=== PATIENT | female | born 1955 | race Caucasian/White ===

== ENCOUNTER 2021-11-24 09:22 | Inpatient (IN) | payer OTHER ==
[~2021-11-24] VITALS: Ht 154.9 cm; Wt 57.6 kg
[2021-11-24] VITALS (15 sets, daily range): BP systolic 104–163; BP diastolic 71–92
--- NOTE | 2021-11-24 09:27 | PHYS DOC ---
Adult General Chief Complaint Chief Complaint: CHEST PAIN HPI HPI Patient is a 66 year old female activated as a code STEMI by [facility]. Dr. Gera Hernandez was waiting for her down in the emergency department and took her straight to the Pleating Supervisor and she did not stop in an ER room. I did not ask her questions or examine her given she went straight to the Pleating Supervisor. Her EKG did appear to be consistent with a STEMI. Review of Systems Review of Systems Unable to obtain as patient went straight to Pleating Supervisor All other systems were reviewed and found to be within normal limits, except as documented in this note. Physical Exam Physical Exam No exam performed as she went straight to Pleating Supervisor EKG EKG EMS EKG reviewed and appear to be consistent with a STEMI Radiology/Procedures Radiology/Procedures [] Course & Med Decision Making Course & Med Decision Making Patient went straight to the Pleating Supervisor. Dragon Disclaimer Dragon Disclaimer This electronic medical record was generated, in whole or in part, using a voice recognition dictation system. Departure Departure Impression: Primary Impression: STEMI (ST elevation myocardial infarction) Disposition: 09 ADMITTED INPATIENT Admitting Physician: JANN Holden) Condition: GUARDED Referrals: NO PCP (PCP) Problem Qualifiers Primary Impression: STEMI (ST elevation myocardial infarction) Involved coronary artery: unspecified coronary artery Qualified Codes: I21.3 - ST elevation (STEMI) myocardial infarction of unspecified site KORTNEY GUERRIER DO Nov 24, 2021 09:27
[2021-11-24] MEDS ORDERED: BIVALIRUDIN 250 MG VIAL. IVP ONE ×2 (09:34→10:00)
[2021-11-24] MEDS ORDERED: IODIXANOL 320 MG/ML 100 ML VIAL. ONE (09:52)
[2021-11-24] MEDS ORDERED: LIDOCAINE 1% Multi-Dose 20 ML VIAL. ONE (09:53)
[2021-11-24] MEDS ORDERED: CLOPIDOGREL BISULFATE 75 MG TABLET ONE (09:58)
[2021-11-24] MEDS ORDERED: HEPARIN for IV BOLUS 10,000 UNIT/10 ML VIAL. IV ONE (10:00)
[2021-11-24] MEDS ORDERED: NITROGLYCERIN 200 MCG/2 ML SYRINGE FOR CATH/VASC LAB. IART ONE (10:00)
[2021-11-24] MEDS ORDERED: LIDOCAINE 1% Multi-Dose 20 ML VIAL. INJ ONE (10:00)
[2021-11-24] MEDS ORDERED: fentaNYL PF VIAL 100 MCG/2 ML VIAL IV ONE (10:00)
[2021-11-24] MEDS ORDERED: MIDAZOLAM HCL/PF 2 MG/2 ML VIAL. IV ONE (10:00)
[2021-11-24] MEDS ORDERED: CLOPIDOGREL BISULFATE 75 MG TABLET PO ONE (10:00)
--- NOTE | 2021-11-24 10:13 | PDOC ---
MODERATE SEDATION ASSESSMENT RISKS/ALTERNATIVES Risks/Alternatives Risks and alternatives of this type of sedation and procedure discussed with: RISK/ALTERNATIVES: Patient H & P ON CHART H & P H & P on chart and reviewed for co-morbid conditions and appropriate labs. H&P ON CHART: Yes STATUS PREG STATUS ASSESSED: N/A MEDS/ALLERGIES REVIEWED Meds/Allergies Reviewed Medications and Allergies including time and route of recently administered narcotics and sedatives. MEDS/ALLERGIES REVIEWED: Yes ASA RATING ASA RATING: II AIRWAY ASSESSMENT Airway Assessment Airway patency, oral function limitations, presence of caps, crowns, dentures, partials, and ability to extend neck assessed. AIRWAY ASSESSMENT: Yes MALLAMPATI SCORE MALLAMPATI SCORE: II PRE-SEDATION ASSESSMENT PRE-SEDATION ASSESSMENT: Yes HERO CRABTREE MD Nov 24, 2021 10:13
[2021-11-24] MEDS ORDERED: ACETAMINOPHEN 325 MG TABLET. PO PRN (10:15)
[2021-11-24] MEDS: IV 1/2 NORMAL SALINE 1,000 ML IV SCH ×2 (10:15→20:15)
[2021-11-24] MEDS ORDERED: NITROGLYCERIN SUBLINGUAL 0.4 MG BOTTLE OF 25. SL PRN (10:15)
--- NOTE | 2021-11-24 10:22 | PDOC2 ---
CONSULT Date of Consult Date of Consult DATE: 11/24/21 TIME: 10:18 Reason for Consult Reason for Consult: STEMI Identification/Chief Complaint Chief Complaint Chest pain Source Source: Patient History of Present Illness Reason for Visit: 66-year-old female without any previous cardiac history presented via [facility] with retrosternal chest pressure that started 1 hour prior to presentation. She denied any orthopnea/PND, palpitations or syncope. EKG s howed inferior ST elevations prompting code STEMI activation. Patient was given aspirin, heparin and was taken emergently for cardiac catheterization. She was noted to have significant stenosis in the mid and distal segments of right coronary artery and underwent successful PCI/drug-eluting stent placement. Her left ventricle systolic function was normal. Past Medical History Cardiovascular: No pertinent hx Past Surgical History Past Surgical History: No pertinent history Family History Family History No family history of premature coronary artery disease Social History Social History Patient denied any smoking, alcohol or drug use Current Problem List Problem List Problems Medical Problems: (1) STEMI (ST elevation myocardial infarction) Status: Acute Current Medications Current Medications Current Medications Bivalirudin (Angiomax) 250 mg STK-MED ONCE IVP ; Start 11/24/21 at 09:34; Stop 11/24/21 at 09:34; Status DC Iodixanol (Visipaque 320) 100 ml STK-MED ONCE .ROUTE ; Start 11/24/21 at 09:52; Stop 11/24/21 at 09:52; Status DC Heparin Sodium/ Sodium Chloride 500 ml @ As Directed STK-MED ONCE .ROUTE ; Start 11/24/21 at 09:52; Stop 11/24/21 at 09:52; Status DC Lidocaine HCl (Lidocaine 1% 20ml Vial) 20 ml STK-MED ONCE .ROUTE ; Start 11/24/21 at 09:53; Stop 11/24/21 at 09:54; Status DC Nitroglycerin (Nitroglycerin) 200 mcg 1X ONCE IART Last administered on 11/24/21at 10:00; Start 11/24/21 at 10:00; Stop 11/24/21 at 10:01 Heparin Sodium (Porcine) (Heparin Sodium) 4,000 unit 1X ONCE IV Last administered on 11/24/21at 09:22; Start 11/24/21 at 10:00; Stop 11/24/21 at 10:01 Heparin Sodium/ Sodium Chloride (HEPARIN for ARTERIAL LINE FLUSH) 1,000 unit 1X ONCE IART Last administered on 11/24/21at 10:00; Start 11/24/21 at 10:00; Stop 11/24/21 at 10:01 Midazolam HCl (Versed) 1 mg 1X ONCE IV Last administered on 11/24/21at 09:26; Start 11/24/21 at 10:00; Stop 11/24/21 at 10:01 Fentanyl Citrate (Fentanyl 2ml Vial) 50 mcg 1X ONCE IV Last administered on 11/24/21at 09:26; Start 11/24/21 at 10:00; Stop 11/24/21 at 10:01 Bivalirudin (Angiomax) 250 mg 1X ONCE IVP Last administered on 11/24/21at 10:00; Start 11/24/21 at 10:00; Stop 11/24/21 at 10:01 Clopidogrel Bisulfate (Plavix) 600 mg 1X ONCE PO Last administered on 11/24/21at 10:00; Start 11/24/21 at 10:00; Stop 11/24/21 at 10:01 Lidocaine HCl (Lidocaine 1% 20ml Vial) 20 ml 1X ONCE INJ Last administered on 11/24/21at 10:00; Start 11/24/21 at 10:00; Stop 11/24/21 at 10:01; Status UNV Clopidogrel Bisulfate (Plavix) 75 mg STK-MED ONCE .ROUTE ; Start 11/24/21 at 09:58; Stop 11/24/21 at 09:58; Status DC Allergies Allergies: Coded Allergies: No Known Drug Allergies (Unverified , 11/24/21) ROS PSYCHOLOGICAL ROS: No: Hallucinations Eyes: No Loss of vision HEENT: No: Epistaxis Respiratory: No: Hemoptysis Cardiovascular: yes Chest Pain Gastrointestinal: No Vomiting, No Diarrhea Genitourinary: No Hematuria Neurological: No Seizures Physical Exam General: Alert, Oriented X3, mild distress HEENT: Atraumatic Lungs: Clear to auscultation Heart: Regular rate Abdomen: Soft Extremities: No edema Neuro: Normal speech Psych/Mental Status: Mood NL Vitals VITALS Vital Signs Date Time Temp Pulse Resp B/P (MAP) Pulse Ox O2 Delivery O2 Flow Rate FiO2 11/24/21 10:10 77 22 98 Room Air 11/24/21 09:26 2.0 Assessment/Plan Assessment/Plan 1. Acute inferior wall ST elevation myocardial infarction. Cardiac catheterization showed significant stenosis involving mid to distal segments of right coronary artery. She underwent successful PCI/drug-eluting stents placement. Her left ventricle systolic function was within normal limits. Continue aspirin, start Plavix, beta-blockers and statin therapy. Check 2D echo to assess LV systolic function better and rule out any valvular abnormalities. 2. Severe sinus bradycardia per EMS, necessitating administration of atropine. She is presently in sinus tachycardia. We will monitor closely on telemetry. 3. Acute diastolic heart failure secondary to acute MD, as evidenced by elevated LVEDP. Thank you for your consultation HERO CRABTREE MD Nov 24, 2021 10:22
--- NOTE | 2021-11-24 10:33 | CARD ---
MR#: [id number] Date of Study: 11/24/2021 Ordering Physician: HERO GILL, Referring Physician: HERO GILL, Tech: RT Cordell(R) APPROVED REPORT Technologist: RT Cordell(R) Nurse: Unique Sinha RN Procedure(s) performed: 1. Left heart catheterization, selective coronary angiography and left ventr iculography 2. Successful PCI/drug-eluting stent placement to the right coronary artery FL TIME: 10 MIN DOSE: 40 GYCM2 CONTRAST: 159 ML MODERATE SEDATION: 41 MINS INDICATION The indication(s) include : Acute inferior wall ST elevation myocardial infarction. [facility] Clinical Frailty Scale [facility] Clinical Frailty Scale: Mildly Frail Heart Failure Heart Failure: No CASE TECHNIQUE IV conscious sedation was used throughout procedure with appropriate monitoring and was performed in the presence of a registered nurse who was an independent trained observer other than the physician p erforming the procedure. During this case, Fluoroscopy and low osmolar contrast were used for imaging . Specimen(s) Removed: No Estimated Blood loss: 15 cc's. PROCEDURE NARRATIVE After explaining the risk, benefits and alternative options, informed consent was obtained for patien t. Patient was brought to the cardiac Shuttle Buggy Operator and her right groin was prepped and draped in the usu al fashion. 10 cc of 2% lidocaine was infiltrated into the skin and subcutaneous tissues for local a nesthesia. Arterial access was obtained in the right common femoral artery and a 6 Kuwaiti sheath was inserted. 6 Kuwaiti JL4 and 6 Kuwaiti JR4 catheters were used to perform selective angiography of the left and right coronary arteries. 6 Kuwaiti pigtail catheter was used to perform left ventriculograp hy. The following findings were noted: FINDINGS 1. Hemodynamics: Elevated left ventricular end-diastolic pressure of 24 mmHg consistent with acute d iastolic heart failure. No pullback gradient across the aortic valve. 2. Left ventriculography: Normal left ventricle systolic function with ejection fraction estimated a t 65%. No significant mitral regurgitation seen. 3. Coronary angiography: a. The left main coronary artery arose from the left sinus of Valsalva, gave rise to the left anteri or descending and left circumflex arteries and did not show any significant stenosis. b. The left anterior descending artery did not show any significant stenosis. c. The left circumflex artery did not show any significant stenosis. d. The right coronary artery arose from the right sinus of Valsalva and showed 70% stenosis in the m idsegment and 100% occlusion in the mid to distal segment. Patient was also noted to have 90% stenos is in the distal segment after opening up to 100% occlusion with the balloon. INTERVENTION The right coronary artery was engaged with a 6 Kuwaiti JR4 guide catheter and the complete occlusion i n the mid to distal segment was crossed with a 0.014 inch Ameriprime guidewire. Multiple inflati ons were performed within the mid, mid to distal and distal segments using 2.5 x 12 mm TapZen fic Emerge balloon. The distal segment stenosis was treated with a 2.5 x 15 mm resolute Luca drug-el uting stent. The mid and mid to distal segment stenoses were treated with a 3.0 x 34 mm resolute Luba x drug-eluting stent. Follow-up angiography showed resolution of the lesions to 0% with BISI-3 dista l flow. Patient tolerated the procedure well. Hemostasis was achieved using Angio-Seal. There were no immediate complications. BISI Flow BISI Flow (Pre-Intervention): BISI-0 BISI Flow (Post-Intervention): BISI-3 Conclusion 1. Severe single-vessel coronary disease involving the right coronary artery as described above 2. Successful PCI/drug-eluting stent placement to RCA 3. Normal left ventricle systolic function with ejection fraction estimated at 65% Recommendations 1. Aspirin 325 mg daily for 1 month followed by 81 mg daily 2. Plavix 75 mg daily 3. Cardiovascular risk factor modification Signed by : Hero Gill, Electronically Approved : 11/24/2021 10:32:53
--- NOTE | 2021-11-24 13:03 | SSS ---
DATE OF SERVICE: 11/24/2021 ADMIT DATE: 11/24/2021 CHIEF COMPLAINT: Chest pressure. HISTORY OF PRESENT ILLNESS: The patient is a pleasant 66-year-old female who presented to [facility] ER via EMS. She was having chest pain. They noted that she had a lot of EKG changes with ST elevations, which prompted a STEMI activation. She was transferred here. Dr. Gill took her to the labor standards director and successfully placed 2 stents to the RCA. She is now being examined in the ICU where she is stable. PAST MEDICAL HISTORY: Benign. ALLERGIES: None. FAMILY HISTORY: Diabetes. SOCIAL HISTORY: She does not drink, smoke or take drugs. She is . MEDICATIONS: Reviewed. Please refer to the MRAD. REVIEW OF SYSTEMS: GENERAL: No history of weight change, weakness or fevers. SKIN: No bruising, hair changes or rashes. EYES: No blurred, double or loss of vision. NOSE AND THROAT: No history of nosebleeds, hoarseness or sore throat. HEART: No history of palpitations, chest pain or shortness of breath on exertion. LUNGS: Denies cough, hemoptysis, wheezing or shortness of breath. GASTROINTESTINAL: Denies changes in appetite, nausea, vomiting, diarrhea or constipation. GENITOURINARY: No history of frequency, urgency, hesitancy or nocturia. NEUROLOGIC: Denies history of numbness, tingling, tremor or weakness. PSYCHIATRIC: No history of panic, anxiety or depression. ENDOCRINE: No history of heat or cold intolerance, polyuria or polydipsia. EXTREMITIES: Denies muscle weakness, joint pain, pain on walking or stiffness. PHYSICAL EXAMINATION: VITALS: Within normal limits and are stable. GENERAL: No apparent distress. Alert and oriented. HEENT: Normal cephalic atraumatic, external auditory canals are patent. EYES: Extraocular muscles are intact, pupils are equally round and reactive to light and accommodation. MUSCULOSKELETAL: Well developed, well nourished, good range of motion. ENDOCRINE: No thyromegaly was palpated. LYMPHATICS: No cervical chain or axillary nodes were noted. HEMATOPOIETIC: No bruising. NECK: Supple, no JVD, no thyromegaly was noted. LUNGS: Clear to auscultation in all lung alvares without rhonchi or wheezing. HEART: RRR, S1, S2 present. Peripheral pulses intact, no obvious murmurs were noted. ABDOMEN: Soft, nontender. Positive bowel sounds no organomegaly, normal bowel sounds. EXTREMITIES: Without any cyanosis, clubbing, or edema. Pedal pulses intact, Homans sign is negative. NEUROLOGIC: Normal speech, normal tone. A and O x 3, moves all extremities, no obvious focal deficits. PSYCHIATRIC: Normal affect, normal mood. Stable. SKIN: No ulcerations or rashes, good skin turgor, no jaundice. VASCULAR: Good capillary refill, neurovascular bundle appears to be intact. ASSESSMENT AND PLAN: Resolving acute myocardial infarction with successful cardiac catheterization and 2 new stent to the right coronary artery. For now, we are just watching her in the ICU. We hope to discharge tomorrow. We have ordered Plavix 75 a day, aspirin 325 a day, atorvastatin 40 a day, metoprolol 12.5 b.i.d., p.r.n. nitro, p.r.n. Tylenol and normal saline. MICHAEL/LOUIE DR: Randolph TID: [id number]
[2021-11-24 13:44] LABS: BASO % 0 % (0-3); EOS % 0 % (0-3); HEMATOCRIT 45.2 % (36.0-47.0); HEMOGLOBIN 15.1 g/dL (12.0-15.5); LYMPH # 0.9 x10^3/uL (1.0-4.8); LYMPH % 7 % (24-48); MEAN CORPUSCULAR HEMOGLOBIN 30 pg (25-35); MEAN CORPUSCULAR HGB CONC 33 g/dL (31-37); MEAN CORPUSCULAR VOLUME 90 fL (79-100); MONO # 0.4 x10^3/uL (0.0-1.1); MONO % 3 % (0-9); NEUT # 12.3 x10^3/uL (1.8-7.7); NEUT % 90 % (31-73); PLATELET COUNT 253 x10^3/uL (140-400); RED BLOOD COUNT 5.03 x10^6/uL (3.50-5.40); RED CELL DISTRIBUTION WIDTH 13.1 % (11.5-14.5); WHITE BLOOD COUNT 13.7 x10^3/uL (4.0-11.0)
[2021-11-24 13:54] LABS: CREATININE 0.9 mg/dL (0.6-1.0); POTASSIUM 4.2 mmol/L (3.5-5.1)
[2021-11-24 13:57] LABS: ALBUMIN 4.1 g/dL (3.4-5.0); ALBUMIN/GLOBULIN RATIO 1.2 (1.0-1.7); TOTAL BILIRUBIN 1.2 mg/dL (0.2-1.0); TOTAL PROTEIN 7.4 g/dL (6.4-8.2)
[2021-11-24 13:59] LABS: PROTHROMBIN TIME PATIENT 16.9 SEC (11.7-14.0)
--- NOTE | 2021-11-24 14:56 | RAD ---
XR CHEST 1V INDICATION: CHEST PAIN . COMPARISON STUDY: None. FINDINGS: Lungs: Normal lung volume. No pulmonary mass or consolidation. The tracheobronchial tree and hilar st ructures are normal. Pleura: No pleural effusion or pneumothorax. Heart and Mediastinum: The cardiomediastinal silhouette is normal. The great vessels of the thorax ar e normal. Bones and Soft Tissues: The bones and soft tissues are within normal limits. IMPRESSION: No acute cardiopulmonary process. Electronically signed by: Kermit Akbar MD (11/24/2021 2:53 PM) [facility]
--- NOTE | 2021-11-24 18:25 | CARD ---
MR#: [id number] Date of Study: 11/24/2021 Ordering Physician: HERO GILL, Referring Physician: Alex MARTÍNEZ: Brice Jackson [facility] APPROVED REPORT EXAM: Two-dimensional and M-mode echocardiogram with Doppler and color Doppler. Other Information Quality : AverageHR: 69bpm Rhythm : NSR INDICATION Cardiac Disease: CAD STEMI RISK FACTORS No previous risk factors. 2D DIMENSIONS Left Atrium(2D)2.8 (1.6-4.0cm)IVSd0.8 (0.7-1.1cm) Aortic Root(2D)2.5 (2.0-3.7cm)LVDd4.6 (3.9-5.9cm) LVOT Diameter1.7 (1.8-2.4cm)PWd0.8 (0.7-1.1cm) LVDs2.8 (2.5-4.0cm)FS (%) 39.4 % SV67.2 mlLVEF(%)70.0 (>50%) Mitral Valve MV E Theozjxa56.6cm/sMV DECEL [id number] MV A Ibqpqord80.9cm/sE/A Ratio0.9 Tricuspid Valve TR P. Cikzxwel924yq/sTR Peak Gr.15mmHg Pulmonary Vein S1 Oxdznosy73.4cm/sD2 Gxkxojwc87.0cm/s LEFT VENTRICLE The left ventricle is normal size. There is normal left ventricular wall thickness. The left ventricu lar systolic function is normal. The ejection fraction is estimated at 60%. There is normal LV segmen luci wall motion. Transmitral Doppler flow pattern is Grade I-abnormal relaxation pattern. No left adam tricle thrombus noted on this study. There is no ventricular septal defect visualized. There is no le ft ventricular aneurysm. There is no mass noted in the left ventricle. RIGHT VENTRICLE The right ventricle is normal size. There is normal right ventricular wall thickness. The right ventr icular systolic function is normal. ATRIA The left atrium size is normal. The right atrium size is normal. The interatrial septum is intact wit h no evidence for an atrial septal defect or patent foramen ovale as noted on 2-D or Doppler imaging. AORTIC VALVE The aortic valve is normal in structure and function. Doppler and Color Flow revealed no significant aortic regurgitation. There is no significant aortic valvular stenosis. There is no aortic valvular v egetation. MITRAL VALVE The mitral valve is normal in structure and function. There is no evidence of mitral valve prolapse. There is no mitral valve stenosis. Doppler and Color-flow revealed trace mitral regurgitation. TRICUSPID VALVE The tricuspid valve is normal in structure and function. Doppler and Color Flow revealed trace tricus pid regurgitation. There is no tricuspid valve prolapse or vegetation. There is no tricuspid valve st enosis. PULMONIC VALVE The pulmonary valve is normal in structure and function. Doppler and Color Flow revealed no pulmonic valvular regurgitation. There is no pulmonic valvular stenosis. GREAT VESSELS The aortic root is normal in size. The ascending aorta is normal in size. The pulmonary artery is nor mal. The IVC is normal in size and collapses >50% with inspiration. PERICARDIAL EFFUSION There is no pleural effusion. There is no evidence of significant pericardial effusion. Critical Notification Critical Value: No <Conclusion> The left ventricular systolic function is normal. The ejection fraction is estimated at 60%. There is normal LV segmental wall motion. Transmitral Doppler flow pattern is Grade I-abnormal relaxation pattern. Trace mitral regurgitation. Trace tricuspid regurgitation. There is no evidence of significant pericardial effusion. Signed by : Hero Gill, Electronically Approved : 11/24/2021 18:25:14
[2021-11-24] MEDS ORDERED: PROG200C10 PO (19:44)
[2021-11-24] MEDS: METOPROLOL TART IMMED RELEASE 25 MG TABLET. PO SCH (21:00)
[2021-11-24] MEDS ORDERED: ATORVASTATIN CALCIUM 20 MG TABLET PO SCH (21:00)
[2021-11-25] VITALS (12 sets, daily range): BP systolic 125–199; BP diastolic 64–91
[2021-11-25] MEDS ORDERED: ZOLPIDEM 5 MG TABLET. PO PRN
[2021-11-25 04:19] LABS: BASO % 0 % (0-3); EOS # 0.1 x10^3/uL (0.0-0.7); EOS % 1 % (0-3); HEMATOCRIT 44.9 % (36.0-47.0); HEMOGLOBIN 14.9 g/dL (12.0-15.5); LYMPH # 1.9 x10^3/uL (1.0-4.8); LYMPH % 19 % (24-48); MEAN CORPUSCULAR HEMOGLOBIN 29 pg (25-35); MEAN CORPUSCULAR HGB CONC 33 g/dL (31-37); MEAN CORPUSCULAR VOLUME 89 fL (79-100); MONO # 0.8 x10^3/uL (0.0-1.1); MONO % 8 % (0-9); NEUT # 7.2 x10^3/uL (1.8-7.7); NEUT % 72 % (31-73); PLATELET COUNT 234 x10^3/uL (140-400); RED BLOOD COUNT 5.07 x10^6/uL (3.50-5.40)
[2021-11-25 04:33] LABS: ALBUMIN 3.6 g/dL (3.4-5.0); ALBUMIN/GLOBULIN RATIO 1.1 (1.0-1.7); CALCIUM 8.9 mg/dL (8.5-10.1); CREATININE 0.8 mg/dL (0.6-1.0); GFR 72.2; POTASSIUM 3.7 mmol/L (3.5-5.1); TOTAL BILIRUBIN 1.5 mg/dL (0.2-1.0)
[2021-11-25] MEDS: IV 1/2 NORMAL SALINE 1,000 ML IV SCH (06:15)
--- NOTE | 2021-11-25 07:15 | PDOC ---
PROGRESS NOTES Date of Service: DATE: 11/25/21 TIME: 07:15 Subjective Subjective Patient feeling much better today. Denied any chest pain. Objective Objective Vital Signs Date Time Temp Pulse Resp B/P (MAP) Pulse Ox O2 Delivery O2 Flow Rate FiO2 11/25/21 06:00 63 17 169/82 (111) 99 Room Air 11/25/21 04:00 97.8 97.8 11/24/21 09:26 2.0 Intake and Output 11/25/21 07:00 Intake Total 2200 ml Output Total 0 ml Balance 2200 ml Intake Oral 2200 ml Output Urine Total 0 ml # Voids 9 Physical Exam Abdomen: Soft Heart: Regular rate Extremities: No edema General: Alert, Oriented X3, No acute distress HEENT: Atraumatic Lungs: Clear to auscultation Neuro: Normal speech Psych/Mental Status: Mood NL Assessment Assessment 1. Acute inferior wall ST elevation myocardial infarction. Cardiac catheterization yesterday showed significant stenosis involving mid to distal segments of right coronary artery. She underwent successful PCI/drug-eluting stents placement. 2D echo showed normal LV systolic function. Continue aspirin, start Plavix, beta-blockers and statin therapy. 2. Severe sinus bradycardia per EMS, necessitating administration of atropine. Telemetry did not show any further episodes. 3. Acute diastolic heart failure secondary to acute MT, as evidenced by elevated LVEDP. She is clinically well compensated. Okay for DC from cardiac standpoint. We will refer patient for cardiac rehabilitation follow-up in 1 month. Plan Plan of Care Problems Medical Problems: (1) STEMI (ST elevation myocardial infarction) Status: Acute Comment Review of Relevant I have reviewed the following items clive (where applicable) has been applied. Labs Laboratory Tests Test 11/24/21 13:25 11/25/21 04:00 White Blood Count 13.7 x10^3/uL (4.0-11.0) 10.0 x10^3/uL (4.0-11.0) Red Blood Count 5.03 x10^6/uL (3.50-5.40) 5.07 x10^6/uL (3.50-5.40) Hemoglobin 15.1 g/dL (12.0-15.5) 14.9 g/dL (12.0-15.5) Hematocrit 45.2 % (36.0-47.0) 44.9 % (36.0-47.0) Mean Corpuscular Volume 90 fL (79-100) 89 fL (79-100) Mean Corpuscular Hemoglobin 30 pg (25-35) 29 pg (25-35) Mean Corpuscular Hemoglobin Concent 33 g/dL (31-37) 33 g/dL (31-37) Red Cell Distribution Width 13.1 % (11.5-14.5) 13.0 % (11.5-14.5) Platelet Count 253 x10^3/uL (140-400) 234 x10^3/uL (140-400) Neutrophils (%) (Auto) 90 % (31-73) 72 % (31-73) Lymphocytes (%) (Auto) 7 % (24-48) 19 % (24-48) Monocytes (%) (Auto) 3 % (0-9) 8 % (0-9) Eosinophils (%) (Auto) 0 % (0-3) 1 % (0-3) Basophils (%) (Auto) 0 % (0-3) 0 % (0-3) Neutrophils # (Auto) 12.3 x10^3/uL (1.8-7.7) 7.2 x10^3/uL (1.8-7.7) Lymphocytes # (Auto) 0.9 x10^3/uL (1.0-4.8) 1.9 x10^3/uL (1.0-4.8) Monocytes # (Auto) 0.4 x10^3/uL (0.0-1.1) 0.8 x10^3/uL (0.0-1.1) Eosinophils # (Auto) 0.0 x10^3/uL (0.0-0.7) 0.1 x10^3/uL (0.0-0.7) Basophils # (Auto) 0.0 x10^3/uL (0.0-0.2) 0.0 x10^3/uL (0.0-0.2) Prothrombin Time 16.9 SEC (11.7-14.0) Prothromb Time International Ratio 1.4 (0.8-1.1) Activated Partial Thromboplast Time 69 SEC (24-38) Sodium Level 136 mmol/L (136-145) 137 mmol/L (136-145) Potassium Level 4.2 mmol/L (3.5-5.1) 3.7 mmol/L (3.5-5.1) Chloride Level 101 mmol/L (98-107) 104 mmol/L (98-107) Carbon Dioxide Level 24 mmol/L (21-32) 25 mmol/L (21-32) Anion Gap 11 (6-14) 8 (6-14) Blood Urea Nitrogen 15 mg/dL (7-20) 11 mg/dL (7-20) Creatinine 0.9 mg/dL (0.6-1.0) 0.8 mg/dL (0.6-1.0) Estimated GFR (Cockcroft-Gault) 63.0 72.2 BUN/Creatinine Ratio 17 (6-20) 14 (6-20) Glucose Level 87 mg/dL (70-99) 107 mg/dL (70-99) Calcium Level 9.0 mg/dL (8.5-10.1) 8.9 mg/dL (8.5-10.1) Total Bilirubin 1.2 mg/dL (0.2-1.0) 1.5 mg/dL (0.2-1.0) Aspartate Amino Transf (AST/SGOT) 77 U/L (15-37) 92 U/L (15-37) Alanine Aminotransferase (ALT/SGPT) 30 U/L (14-59) 27 U/L (14-59) Alkaline Phosphatase 79 U/L (46-116) 74 U/L (46-116) Troponin I High Sensitivity 79563 ng/L (4-50) RY-Cbd-I-Type Natriuretic Peptide 114 pg/mL (0-124) Total Protein 7.4 g/dL (6.4-8.2) 7.0 g/dL (6.4-8.2) Albumin 4.1 g/dL (3.4-5.0) 3.6 g/dL (3.4-5.0) Albumin/Globulin Ratio 1.2 (1.0-1.7) 1.1 (1.0-1.7) Medications Current Medications Acetaminophen (Tylenol) 650 mg PRN Q6HRS PRN PO MILD PAIN / TEMP > 100.3'F; Start 11/24/21 at 10:15 Aspirin (Ecotrin) 325 mg DAILYWBKFT PO ; Start 11/25/21 at 08:00 Atorvastatin Calcium (Lipitor) 40 mg QHS PO Last administered on 11/24/21at 21:00; Start 11/24/21 at 21:00 Bivalirudin (Angiomax) 250 mg 1X ONCE IVP Last administered on 11/24/21at 10:00; Start 11/24/21 at 10:00; Stop 11/24/21 at 10:13; Status DC Bivalirudin (Angiomax) 250 mg STK-MED ONCE IVP ; Start 11/24/21 at 09:34; Stop at 09:34; Status DC Clopidogrel Bisulfate (Plavix) 75 mg DAILYWBKFT PO ; Start 11/25/21 at 08:00 Clopidogrel Bisulfate (Plavix) 75 mg STK-MED ONCE .ROUTE ; Start 11/24/21 at 09:58; Stop 11/24/21 at 09:58; Status DC Clopidogrel Bisulfate (Plavix) 600 mg 1X ONCE PO Last administered on 11/24/21at 10:00; Start 11/24/21 at 10:00; Stop 11/24/21 at 10:13; Status DC Fentanyl Citrate (Fentanyl 2ml Vial) 50 mcg 1X ONCE IV Last administered on 11/24/21at 09:26; Start 11/24/21 at 10:00; Stop 11/24/21 at 10:13; Status DC Heparin Sodium (Porcine) (Heparin Sodium) 4,000 unit 1X ONCE IV Last administered on 11/24/21at 09:22; Start 11/24/21 at 10:00; Stop 11/24/21 at 10:13; Status DC Heparin Sodium/ Sodium Chloride 500 ml @ As Directed STK-MED ONCE .ROUTE ; Start 11/24/21 at 09:52; Stop 11/24/21 at 09:52; Status DC Heparin Sodium/ Sodium Chloride (HEPARIN for ARTERIAL LINE FLUSH) 1,000 unit 1X ONCE IART Last administered on 11/24/21at 10:00; Start 11/24/21 at 10:00; Stop 11/24/21 at 10:13; Status DC Iodixanol (Visipaque 320) 100 ml STK-MED ONCE .ROUTE ; Start 11/24/21 at 09:52; Stop 11/24/21 at 09:52; Status DC Lidocaine HCl (Lidocaine 1% 20ml Vial) 20 ml 1X ONCE INJ Last administered on 11/24/21at 10:00; Start 11/24/21 at 10:00; Stop 11/24/21 at 10:13; Status DC Lidocaine HCl (Lidocaine 1% 20ml Vial) 20 ml STK-MED ONCE .ROUTE ; Start 11/24/21 at 09:53; Stop 11/24/21 at 09:54; Status DC Metoprolol Tartrate (Lopressor) 12.5 mg BID PO Last administered on 11/24/21at 21:00; Start 11/24/21 at 21:00 Midazolam HCl (Versed) 1 mg 1X ONCE IV Last administered on 11/24/21at 09:26; Start 11/24/21 at 10:00; Stop 11/24/21 at 10:13; Status DC Nitroglycerin (Nitroglycerin) 200 mcg 1X ONCE IART Last administered on 11/24/21at 10:00; Start 11/24/21 at 10:00; Stop 11/24/21 at 10:13; Status DC Nitroglycerin (Nitrostat) 0.4 mg PRN Q5MIN PRN SL CHEST PAIN; Start 11/24/21 at 10:15 Sodium Chloride 1,000 ml @ 100 mls/hr Q10H IV ; Start 11/24/21 at 10:15 Zolpidem Tartrate (Ambien) 5 mg PRN QHS PRN PO INSOMNIA Last administered on 11/25/21at 00:08; Start 11/25/21 at 00:00 Vitals/I & O Vital Sign - Last 24 Hours 11/24/21 11/24/21 11/24/21 11/24/21 09:26 10:00 10:10 10:30 Temp 98.2 98.2 Pulse 77 88 Resp 22 14 B/P (MAP) 137/85 (102) Pulse Ox 98 98 98 99 O2 Delivery Nasal Cannula Room Air Room Air Room Air O2 Flow Rate 2.0 11/24/21 11/24/21 11/24/21 11/24/21 10:45 12:00 13:00 14:00 Temp 98.5 98.5 Pulse 86 68 80 74 Resp 16 16 16 16 B/P (MAP) 104/84 (91) 163/74 (103) 155/73 (100) 141/71 (94) Pulse Ox 100 100 100 99 O2 Delivery Room Air Room Air Room Air Room Air 11/24/21 11/24/21 11/24/21 11/24/21 15:00 16:00 17:00 18:00 Temp 98.4 98.4 Pulse 72 78 84 63 Resp 16 18 18 20 B/P (MAP) 152/85 (107) 133/72 (92) 152/92 (112) 156/81 (106) Pulse Ox 99 100 99 97 O2 Delivery Room Air Room Air Room Air Room Air 11/24/21 11/24/21 11/24/21 11/24/21 19:00 19:58 20:00 21:00 Temp 98.1 98.1 Pulse 74 63 65 Resp 16 18 B/P (MAP) 148/75 (99) 163/84 (110) 165/70 Pulse Ox 97 99 O2 Delivery Room Air Room Air Room Air 11/24/21 11/24/21 11/24/21 11/25/21 21:00 22:00 23:00 00:00 Pulse 61 60 51 Resp 15 14 14 B/P (MAP) 162/90 (114) 156/78 (104) 148/85 (106) Pulse Ox 100 98 99 O2 Delivery Room Air Room Air Room Air Room Air 11/25/21 11/25/21 11/25/21 11/25/21 00:00 01:00 02:00 03:00 Temp 98.0 98.0 Pulse 93 56 61 58 Resp 18 12 16 14 B/P (MAP) 147/67 (93) 125/85 (98) 144/64 (90) 199/83 (121) Pulse Ox 99 98 98 99 O2 Delivery Room Air Room Air Room Air Room Air 11/25/21 11/25/21 11/25/21 11/25/21 04:00 04:05 05:00 06:00 Temp 97.8 97.8 Pulse 57 60 63 Resp 18 16 17 B/P (MAP) 138/89 (105) 174/64 (100) 169/82 (111) Pulse Ox 99 99 99 O2 Delivery Room Air Room Air Room Air Room Air Intake and Output 11/24/21 11/24/21 11/25/21 15:00 23:00 07:00 Intake Total 600 ml 350 ml 1250 ml Output Total 0 ml Balance 600 ml 350 ml 1250 ml HERO CRABTREE MD Nov 25, 2021 07:15
[2021-11-25] MEDS ORDERED: CLOPIDOGREL BISULFATE 75 MG TABLET PO SCH (08:00)
[2021-11-25] MEDS ORDERED: ASPIRIN ENTERIC COATED 325 MG TABLET.DR. PO SCH (08:00)
[2021-11-25] MEDS: METOPROLOL TART IMMED RELEASE 25 MG TABLET. PO SCH (10:08)
--- NOTE | 2021-11-25 11:50 | PDOC ---
[facility] PROGRESS NOTE Date of Service DOS: DATE: 11/25/21 TIME: 11:49 Chief Complaint Chief Complaint Resolving acute myocardial infarction with successful cardiac catheterization and 2 new stent to the right coronary artery. History of Present Illness History of Present Illness 11/26/2019 Patient seen and examined Discussed with RN Chart reviewed Patient looks great wants to go Vitals/I&O Vitals/I&O: Vital Signs Date Time Temp Pulse Resp B/P (MAP) Pulse Ox O2 Delivery O2 Flow Rate FiO2 11/25/21 10:08 76 148/91 11/25/21 07:00 18 100 Room Air 11/25/21 04:00 97.8 97.8 11/24/21 09:26 2.0 I & O 11/24/21 11/24/21 11/25/21 15:00 23:00 07:00 Intake Total 600 ml 350 ml 1250 ml Output Total 0 ml Balance 600 ml 350 ml 1250 ml Physical Exam General: Alert, Oriented X3, mild distress Heart: Regular rate Abdomen: Soft Extremities: No edema Labs Labs: Laboratory Tests Test 11/24/21 13:25 11/25/21 04:00 White Blood Count 13.7 x10^3/uL (4.0-11.0) 10.0 x10^3/uL (4.0-11.0) Red Blood Count 5.03 x10^6/uL (3.50-5.40) 5.07 x10^6/uL (3.50-5.40) Hemoglobin 15.1 g/dL (12.0-15.5) 14.9 g/dL (12.0-15.5) Hematocrit 45.2 % (36.0-47.0) 44.9 % (36.0-47.0) Mean Corpuscular Volume 90 fL (79-100) 89 fL (79-100) Mean Corpuscular Hemoglobin 30 pg (25-35) 29 pg (25-35) Mean Corpuscular Hemoglobin Concent 33 g/dL (31-37) 33 g/dL (31-37) Red Cell Distribution Width 13.1 % (11.5-14.5) 13.0 % (11.5-14.5) Platelet Count 253 x10^3/uL (140-400) 234 x10^3/uL (140-400) Neutrophils (%) (Auto) 90 % (31-73) 72 % (31-73) Lymphocytes (%) (Auto) 7 % (24-48) 19 % (24-48) Monocytes (%) (Auto) 3 % (0-9) 8 % (0-9) Eosinophils (%) (Auto) 0 % (0-3) 1 % (0-3) Basophils (%) (Auto) 0 % (0-3) 0 % (0-3) Neutrophils # (Auto) 12.3 x10^3/uL (1.8-7.7) 7.2 x10^3/uL (1.8-7.7) Lymphocytes # (Auto) 0.9 x10^3/uL (1.0-4.8) 1.9 x10^3/uL (1.0-4.8) Monocytes # (Auto) 0.4 x10^3/uL (0.0-1.1) 0.8 x10^3/uL (0.0-1.1) Eosinophils # (Auto) 0.0 x10^3/uL (0.0-0.7) 0.1 x10^3/uL (0.0-0.7) Basophils # (Auto) 0.0 x10^3/uL (0.0-0.2) 0.0 x10^3/uL (0.0-0.2) Prothrombin Time 16.9 SEC (11.7-14.0) Prothromb Time International Ratio 1.4 (0.8-1.1) Activated Partial Thromboplast Time 69 SEC (24-38) Sodium Level 136 mmol/L (136-145) 137 mmol/L (136-145) Potassium Level 4.2 mmol/L (3.5-5.1) 3.7 mmol/L (3.5-5.1) Chloride Level 101 mmol/L (98-107) 104 mmol/L (98-107) Carbon Dioxide Level 24 mmol/L (21-32) 25 mmol/L (21-32) Anion Gap 11 (6-14) 8 (6-14) Blood Urea Nitrogen 15 mg/dL (7-20) 11 mg/dL (7-20) Creatinine 0.9 mg/dL (0.6-1.0) 0.8 mg/dL (0.6-1.0) Estimated GFR (Cockcroft-Gault) 63.0 72.2 BUN/Creatinine Ratio 17 (6-20) 14 (6-20) Glucose Level 87 mg/dL (70-99) 107 mg/dL (70-99) Calcium Level 9.0 mg/dL (8.5-10.1) 8.9 mg/dL (8.5-10.1) Total Bilirubin 1.2 mg/dL (0.2-1.0) 1.5 mg/dL (0.2-1.0) Aspartate Amino Transf (AST/SGOT) 77 U/L (15-37) 92 U/L (15-37) Alanine Aminotransferase (ALT/SGPT) 30 U/L (14-59) 27 U/L (14-59) Alkaline Phosphatase 79 U/L (46-116) 74 U/L (46-116) Troponin I High Sensitivity 02694 ng/L (4-50) YF-Mxs-D-Type Natriuretic Peptide 114 pg/mL (0-124) Total Protein 7.4 g/dL (6.4-8.2) 7.0 g/dL (6.4-8.2) Albumin 4.1 g/dL (3.4-5.0) 3.6 g/dL (3.4-5.0) Albumin/Globulin Ratio 1.2 (1.0-1.7) 1.1 (1.0-1.7) Assessment and Plan Assessmemt and Plan Problems Medical Problems: (1) STEMI (ST elevation myocardial infarction) Status: Acute Resolving acute myocardial infarction with successful cardiac catheterization and 2 new stent to the right coronary artery. Plan We are hoping to discharge later today after seen by cardiology For now continue cardiac cocktail with beta-blockers statins antiplatelet drugs RICHIE inhibitor's etc. Wound skilled nursing meds DVT prophylaxis Full code Appreciate cardiology intervention Comment Review of Relevant I have reviewed the following items clive (where applicable) has been applied. Medications: Current Medications Medications (Trade) Dose Ordered Sig/Noel Route PRN Reason Start Time Stop Time Status Last Admin Dose Admin Aspirin (Ecotrin) 325 mg DAILYWBKFT PO 11/25/21 08:00 11/25/21 10:07 Clopidogrel Bisulfate (Plavix) 75 mg DAILYWBKFT PO 11/25/21 08:00 11/25/21 10:07 Metoprolol Tartrate (Lopressor) 12.5 mg BID PO 11/24/21 21:00 11/25/21 10:08 Atorvastatin Calcium (Lipitor) 40 mg QHS PO 11/24/21 21:00 11/24/21 21:00 Zolpidem Tartrate (Ambien) 5 mg PRN QHS PRN PO INSOMNIA 11/25/21 00:00 11/25/21 00:08 Justifications for Admission Other Justification SUGEY KEITH III DO Nov 25, 2021 11:49
[2021-11-25] MEDS ORDERED: CLOP75TA PO (11:51)
[2021-11-25] MEDS ORDERED: ATOR20TA58 PO (11:51)
[2021-11-25] MEDS ORDERED: NITR0.4T24 SL (11:51)
[2021-11-25] MEDS ORDERED: METO25TA4 PO (11:51)
== END 2021-11-25 14:06 | disposition home or self-care (01) | DRG 246 ==
LOC: ER 09:22 → 1 WEST ICU 09:26
PROVIDERS: ADMIT Internal Medicine; ATTEND Internal Medicine
PROC: 027035Z Dilation of Coronary Artery, One Artery with Two Drug-eluting Intraluminal Devices, Percutaneous Approach (ICD-10-PCS; principal; 2021-11-24)
PROC: 4A023N7 Measurement of Cardiac Sampling and Pressure, Left Heart, Percutaneous Approach (ICD-10-PCS; 2021-11-24)
PROC: B2111ZZ Fluoroscopy of Multiple Coronary Arteries using Low Osmolar Contrast (ICD-10-PCS; 2021-11-24)
PROC: B2151ZZ Fluoroscopy of Left Heart using Low Osmolar Contrast (ICD-10-PCS; 2021-11-24)
DX: I21.19 ST elevation (STEMI) myocardial infarction involving other coronary artery of inferior wall (principal); I50.31 Acute diastolic (congestive) heart failure; Z83.3 Family history of diabetes mellitus
CPT/HCPCS: 92941; 93458; 96374; 99285; G0269; 36415; 71045; 80053; 83880; 84484; 85025; 85610; 85730; 93306; 99152; 99153; C1725; C1874; J0583; J1644; J2250; J3010; J3490; C8929; G0378